=== PATIENT | male | born 1950 | race Caucasian/White ===

== ENCOUNTER 2018-01-26 06:43 | Inpatient (IN) | payer BC, MEDICARE ==
[~2018-01-26] VITALS: Ht 175.3 cm; Wt 122.7 kg
[~2018-01-26 06:43] MED LIST: ACET-1600 PO; CALC625T23 PO; CRAN500C6 PO; FAMO10TA31 PO; FISH1CAP PO; GLUC1TAB35 PO; LACT1CAP37 PO; LISI-167 PO; MAGN400C PO; MELO7.5T31 PO; MULT1TAB60 PO; NIAC500C3 PO; POTA99TA14 PO; SAW1CAPS2 PO; TERA2CAP3 PO
[2018-01-26] MEDS ORDERED: VANCOMYCIN PER PHARMACY MC ONE (07:08)
[2018-01-26] MEDS ORDERED: MIDAZOLAM 1 MG/ML, 2ML ONE (07:29)
[2018-01-26] MEDS ORDERED: FENTANYL PF 250 MCG/5ML ONE (07:30)
[2018-01-26] MEDS ORDERED: ACETAMINOPHEN 500 MG TABLET PO ONE (07:30)
[2018-01-26] MEDS ORDERED: GABAPENTIN 300 MG CAPSULE PO ONE (07:30)
[2018-01-26] MEDS ORDERED: VANCOMYCIN 2,000 MG in SODIUM CHLORIDE 0.9% 500 ML IV ONE (07:30)
[2018-01-26 07:31] VITALS: BP 142/87
[2018-01-26] MEDS ORDERED: PROPOFOL 10 MG/ML, 20ML ONE (07:31)
[2018-01-26] MEDS ORDERED: LACTATED RINGERS 1,000 ML IV SCH (07:31)
[2018-01-26] MEDS ORDERED: ROCURONIUM 10MG/ML,5ML ONE (07:31)
[2018-01-26] MEDS ORDERED: GLYCOPYRROLATE 0.4 MG/2 ML, 2ML ONE (07:32)
[2018-01-26] MEDS ORDERED: NEOSTIGMINE 1 MG/ML, 10ML ONE (07:32)
[2018-01-26] MEDS ORDERED: WATER-INJECTION,STERILE 10 ML IV ONE (07:33)
[2018-01-26] MEDS ORDERED: CEFAZOLIN 1,000 MG ONE ×2 (07:33)
[2018-01-26] MEDS ORDERED: TRANEXAMIC ACID 100 MG/ML, 10ML ONE ×2 (08:11)
[2018-01-26] MEDS ORDERED: KETOROLAC 60 MG/2 ML ONE (08:11)
[2018-01-26] MEDS ORDERED: ROPIvacaine/PF 0.5%, 30 ML ONE (08:11)
[2018-01-26] MEDS ORDERED: EPINEPHRINE 1 MG/ML, 1ML ONE (08:12)
[2018-01-26] MEDS ORDERED: SODIUM CHLORIDE 0.9% 100 ML ONE (08:12)
[2018-01-26] MEDS ORDERED: MORPHINE SULFATE 4 MG/ML, 1ML IVPush PRN (08:30)
[2018-01-26] MEDS ORDERED: MAGNESIUM HYDROXIDE 8%, 30ML UDC PO PRN (08:30)
[2018-01-26] MEDS ORDERED: SENNA/DOCUSATE TABLET PO PRN (08:30)
[2018-01-26] MEDS ORDERED: ZOLPIDEM 5MG TABLET PO PRN (08:30)
[2018-01-26] MEDS ORDERED: LABETALOL 5MG/ML, 20ML IV PRN (08:30)
[2018-01-26] MEDS ORDERED: PROMETHAZINE 25 MG/ML, 1ML IV PRN (08:30)
[2018-01-26] MEDS ORDERED: BISACODYL 10 MG SUPP PR PRN (08:30)
[2018-01-26] MEDS ORDERED: ONDANSETRON 2MG/ML, 2ML IV PRN (08:30)
[2018-01-26] MEDS ORDERED: HYDROmorphone 1 MG/ML, 1ML IV PRN (08:30)
[2018-01-26] MEDS ORDERED: hydrALAzine 20 MG/ML, 1ML IV PRN (08:30)
[2018-01-26] MEDS ORDERED: PROMETHAZINE 12.5 MG SUPP PR PRN (08:30)
[2018-01-26] MEDS ORDERED: DIPHENHYDRAMINE 50 MG CAPSULE PO PRN (08:30)
[2018-01-26] MEDS ORDERED: OXYcodone IR 5MG TABLET PO PRN (08:30)
[2018-01-26] MEDS ORDERED: OXYcodone 5 MG/5 ML ORAL.SOL UDC PO PRN (08:30)
[2018-01-26] MEDS ORDERED: MEPERIDINE/PF 25MG/0.5ML IVPush PRN (08:30)
[2018-01-26] MEDS ORDERED: ONDANSETRON 4 MG TABLET PO PRN (08:30)
[2018-01-26] MEDS ORDERED: PROMETHAZINE 25 MG SUPP PR PRN (08:30)
[2018-01-26] MEDS ORDERED: ACETAMINOPHEN 650 MG/20.3 ML UDC PO PRN (08:30)
[2018-01-26] MEDS ORDERED: FENTANYL PF 100 MCG/2ML IV PRN (08:30)
[2018-01-26] MEDS ORDERED: ONDANSETRON ODT 8 MG PO PRN (08:30)
[2018-01-26] MEDS: DOCUSATE 100 MG CAPSULE PO SCH ×2 (09:00→20:56)
[2018-01-26] MEDS ORDERED: POTASSIUM GLUCONATE PO SCH (09:00)
[2018-01-26] MEDS: TERAZOSIN 2MG CAPSULE PO SCH (09:00)
[2018-01-26] MEDS: LISINOPRIL 10 MG TABLET PO SCH (09:00)
[2018-01-26] MEDS ORDERED: PHENYLEPHRINE 10 MG/ML ONE (09:16)
[2018-01-26] MEDS ORDERED: OXYcodone 5 MG/5 ML ORAL.SOL UDC ONE (10:33)
[2018-01-26] MEDS ORDERED: SCOPOLAMINE PATCH, 1.5MG PATCH.TD72 TD ONE (11:30)
[2018-01-26] MEDS: NS + 20MEQ KCL 1,000 ML IV SCH ×2 (12:10→22:41)
[2018-01-26] MEDS: FAMOTIDINE 20 MG TABLET PO SCH (12:10)
[2018-01-26] MEDS ORDERED: VANCOMYCIN 1,000 MG ONE (15:38)
[2018-01-26 16:06] VITALS: BP 111/72
[2018-01-26 16:44] VITALS: BP 127/75
[2018-01-26] MEDS: ASPIRIN 81 MG TABLET EC PO SCH (16:50)
[2018-01-26] MEDS: CEFAZOLIN PMX 2GM/50ML 50 ML IVPB SCH (16:50)
[2018-01-26] MEDS: HYDROcodone/APAP 5/325 TABLET PO PRN ×2 (16:50→20:56)
[2018-01-26 18:32] VITALS: BP 109/67
[2018-01-27 00:45] VITALS: BP 101/66
[2018-01-27] MEDS: CEFAZOLIN PMX 2GM/50ML 50 ML IVPB SCH (01:00)
[2018-01-27 02:57] VITALS: BP 111/74
[2018-01-27] MEDS ORDERED: DEXAMETHASONE 4 MG/ML, 1ML IVPush SCH (06:00)
[2018-01-27] MEDS: ASPIRIN 81 MG TABLET EC PO SCH (06:04)
[2018-01-27 06:50] VITALS: BP 106/61
[2018-01-27] MEDS: FAMOTIDINE 20 MG TABLET PO SCH (07:50)
[2018-01-27] MEDS: HYDROcodone/APAP 5/325 TABLET PO PRN ×2 (07:51→11:44)
[2018-01-27] MEDS: TERAZOSIN 2MG CAPSULE PO SCH (07:51)
[2018-01-27] MEDS: DOCUSATE 100 MG CAPSULE PO SCH (07:51)
[2018-01-27] MEDS: LISINOPRIL 10 MG TABLET PO SCH (07:52)
[2018-01-27] MEDS ORDERED: OXYC5CAP2 PO (09:43)
[2018-01-27] MEDS ORDERED: TRAM50TA2 PO (09:45)
[2018-01-27] MEDS ORDERED: MELO7.5T31 PO (09:46)
== END 2018-01-27 11:50 | disposition home or self-care (01) | DRG 470 ==
LOC: ORIP 06:43 → 4NOR 11:05
PROVIDERS: ADMIT Orthopaedic Surgery; ATTEND Orthopaedic Surgery
PROC: 0SRB06A Replacement of Left Hip Joint with Oxidized Zirconium on Polyethylene Synthetic Substitute, Uncemented, Open Approach (ICD-10-PCS; principal; 2018-01-26 08:45)
DX: M16.12 Unilateral primary osteoarthritis, left hip (principal); G47.33 Obstructive sleep apnea (adult) (pediatric); I10 Essential (primary) hypertension
CPT/HCPCS: 36415; 72170; 76000; 85014; 85018; 86850; 86900; C1713; J0171; J0690; J1100; J1885; J2250; J2704; J2710; J2795; J3010; J3370; J3480; C1776; J2370; J7040; J7120